=== PATIENT | female | born 1940 | race Caucasian/White ===

== ENCOUNTER → 2017-10-25 | Outpatient (CLI) | payer MEDICARE, OTHER ==
[~2017-10-25] MED LIST: AMLODIPINE BESYL5 MG PO; ASPIR 8181 MG PO; ATELVIA35 MG PO; ATENOLOL50 MG PO; CALTRATE 600 W1 EACH PO; CRANBERRY500 M1 PO; FISH OIL 1,0001 EAC2 PO; GLUCOSAMIN-CHO1 EACH PO; HYDROCHLOROTHIA25 MG PO; MULTI-VITAMIN1 EACH PO; NEXIUM40 MG PO; SIMVASTATIN80 MG PO; XYZAL5 MG PO
--- NOTE | 2017-10-25 09:51 | Diagnostic Imaging Report ---
Exam: Brain MRI without IV contrast History: Vertigo, evaluate for stroke. Comparison studies: None Technique: Sagittal and axial T2 FS, axial coronal T2 FLAIR, axial T1 FLAIR, axial T2*GRE and axial DWI. Intravenous contrast: None Findings: Scalp: No normal in signal. No masses. Bone marrow: Normal in signal intensity. Brain sulci: Appropriate for age. Ventricles: Normal in size. No hydrocephalus. Extra axial spaces: No mass, no fluid collection. Parenchyma: No mass, hemorrhage or acute ischemic insults. A few scattered T2 FLAIR hyperintense foci in the supratentorial white matter are nonspecific but most compatible with chronic small vessel ischemic changes. Suprasellar region: No abnormalities. Craniocervical junction: Patent foramen magnum. No Chiari malformation. Vessels: Normal flow-voids in the arteries and sinuses. Incidental findings: Moderately degenerated C4-C5 disc. Retrolisthesis of C4 on C5 with associated disc osteophyte complex results in moderate to severe canal stenosis. IMPRESSION: 1. No acute abnormalities. Specifically, no acute ischemia. 2. Mild supratentorial chronic microvascular ischemic changes. 3. 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 Signed by: Dr. Usama Dunham M.D. on 10/25/2017 9:48 AM
== END ==
LOC: MRI 07:12
PROVIDERS: ATTEND Internal Medicine Interventional Cardiology
DX: I63.9 Cerebral infarction, unspecified (principal)
CPT/HCPCS: 70551

== ENCOUNTER → 2017-12-06 | Outpatient (CLI) | payer MEDICARE, OTHER ==
--- NOTE | 2017-12-06 12:42 | Diagnostic Imaging Report ---
PROCEDURE:ABDOMINAL ULTRASOUND COMPARISON:None. INDICATIONS:RLQ Pain FINDINGS: Liver: 13.4 cm. Normal hepatic parenchymal echogenicity. No focal mass. Main portal vein: 0.7 cm. Hepatopetal flow. Gallbladder: No stones, sludge, wall thickening, or pericholecystic fluid. Common Bile Duct: 0.4 cm. No echogenic filling defect. Sonographic Jesus's sign: Negative Right kidney: 10.5 cm. No solid or cystic mass, echogenic calculi, or hydronephrosis. Normal parenchymal echogenicity. Left kidney: 10.5 cm. No solid or cystic mass, echogenic calculi, or hydronephrosis. Normal parenchymal echogenicity. Spleen: 8.3 cm. No focal lesions. Pancreas: The visualized portions of the pancreas are normal. Inferior vena cava: Normal. Aorta: Normal. Ascites: None. Additional transverse and longitudinal images through the right lower quadrant in the area of referred pain were performed, and showed no abnormalities. CONCLUSION: 1. Essentially unremarkable abdominal ultrasound. No sonographic abnormalities in the area of referred pain. Recommend contrast-enhanced CT abdomen/pelvis for further evaluation, if continued pain. Chepe Anna M.D. Dictated by: Chepe Anna M.D. on 12/06/2017 at 12:52 Electronically approved by: Chepe Anna M.D. on 12/06/2017 at 12:52
== END ==
LOC: US 08:30
PROVIDERS: ATTEND Family Medicine
DX: R10.31 Right lower quadrant pain (principal)
CPT/HCPCS: 76700

== ENCOUNTER → 2017-12-21 | Day surgery (SDC) | payer MEDICARE, OTHER ==
[2017-12-13 10:45] LABS: BASOPHILS % 0.4 % (0.0-1.0); EOSINOPHILS # (AUTO) 0.1 (0.0-0.4); EOSINOPHILS % 0.9 % (0.0-6.0); HEMATOCRIT 40.3 % (34.2-44.1); HEMOGLOBIN 13.6 g/dL (12.0-16.0); LYMPHOCYTES # (AUTO) 2.6 (1.0-3.2); LYMPHOCYTES % 38.2 % (18.0-39.1); MEAN CORPUSCULAR HEMOGLOBIN 29.7 pg (28-32); MEAN CORPUSCULAR HGB CONC 33.7 g/dL (31-35); MONOCYTES # (AUTO) 0.6 (0.2-0.8); MONOCYTES % 8.7 % (4.4-11.3); NEUTROPHILS # (AUTO) 3.5 (2.1-6.9); NEUTROPHILS % 51.5 % (38.7-80.0); PLATELET COUNT 225 x10e3/uL (140-360); RED BLOOD COUNT 4.58 x10e6/uL (3.6-5.1); RED CELL DISTRIBUTION WIDTH 13.9 % (11.7-14.4)
[~2017-12-21] MED LIST changes: +HYDRALAZINE HCL 20 MG/ML VIAL ONE; +HYOSCYAMINE SULFATE 0.5 MG/ML AMP ONE; +LIDOCAINE HCL 2% LOCAL INJ 5 ML SDV VIAL INJ ONE; +MIDAZOLAM HCL 2 MG/2 ML VIAL ONE; +OMEPRAZOLE40 MG PO; +PROPOFOL IV EMULSION 10 MG/ML 50 ML VIAL ONE
--- OUTSIDE RECORDS SUMMARY | 2017-12-21 07:43 | XMS REPORT ---
Author Author [facility] Address Unknown Phone Unavailable Care Team Providers Care Roll Former Name Role Phone BENITO MERINO Unavailable Unavailable TRACEY HERNÁNDEZ Unavailable Unavailable Problems This patient has no known problems. Allergies, Adverse Reactions, Alerts This patient has no known allergies or adverse reactions. Medications This patient has no known medications. Results Test Description Test Time Test Comments Text Results Atomic Results Result Comments US ABDOMEN COMPLETE [place] [address] Patient Name: MONIKA OSWALD MR #: [id number] : 1940 Age/Sex: 77/F Req #: [id number] [facility] Physician: Ordered by: BENITO MERINO DO Report #: [id number] Location: US Room/Bed: Procedure: [id number] US/US ABDOMEN COMPLETE Exam Date: 12/06/17 Exam Time: 0907 REPORT STATUS: Signed PROCEDURE: ABDOMINAL ULTRASOUND COMPARISON: None. INDICATIONS: RLQ Pain FINDINGS: Liver: 13.4 cm. Normal hepatic parenchymal echogenicity. No focal mass. Main portal vein: 0.7 cm. Hepatopetal flow. Gallbladder: No stones, sludge, wall thickening, or pericholecystic fluid. Common Bile Duct: 0.4 cm. No echogenic filling defect. Sonographic Jesus's sign: Negative Right kidney: 10.5 cm. No solid or cystic mass, echogenic calculi, or hydronephrosis. Normal parenchymal echogenicity. Left kidney: 10.5 cm. No solid or cystic mass, echogenic calculi, or hydronephrosis. Normal parenchymal echogenicity. Spleen: 8.3 cm. No focal lesions. Pancreas: The visualized portions of the pancreas are normal. Inferior vena cava: Normal. Aorta: Normal. Ascites: None. Additional transverse and longitudinal images through the right lower quadrant in the area of referred pain were performed, and showed no abnormalities. CONCLUSION: 1. Essentially unremarkable abdominal ultrasound. No sonographic abnormalities in the area of referred pain. Recommend contrast- enhanced CT abdomen/pelvis for further evaluation, if continued pain. Ran Anna M.D. Dictated by: Ran Anna M.D. on 12/06/2017 at 12:52 Electronically approved by: Ran Anna M.D. on 12/06/2017 at 12:52 Dictated By: RAN ANNA MD 1252 Transcribed By: BALJIT on 12/06/17 1252 COPY TO: BENITO MERINO DO MRI BRAIN WO [place] [address] Patient Name: MONIKA OSWALD MR #: [id number] : 1940 Age/Sex: 77/F Req #: [id number] Adm Physician: Ordered by: TRACEY HERNÁNDEZ MD Report #: [id number] Location: MRI Room/Bed: Procedure: [id number] MRI/MRI BRAIN WO Exam Date: 10/25/17 Exam Time: 0805 REPORT STATUS: Signed Exam: Brain MRI without IV contrast History: Vertigo, evaluate for stroke. Comparison studies: None Technique: Sagittal and axial T2 FS, axial coronal T2 FLAIR, axial T1 FLAIR, axial T2*GRE and axial DWI. Intravenous contrast: None Findings : Scalp: No normal in signal. No masses. Bone marrow: Normal in signal intensity. Brain sulci: Appropriate for age. Ventricles: Normal in size. No hydrocephalus. Extra axial spaces: No mass, no fluid collection. Parenchyma: No mass, hemorrhage or acute ischemic insults. A few scattered T2 FLAIR hyperintense foci in the supratentorial white matter are nonspecific but most compatible with chronic small vessel ischemic changes. Suprasellar region: No abnormalities. Craniocervical junction: Patent foramen magnum. No Chiari malformation. Vessels: Normal flow-voids in the arteries and sinuses. Incidental findings: Moderately degenerated C4-C5 disc. Retrolisthesis of C4 on C5 with associated disc osteophyte complex results in moderate to severe canal stenosis. IMPRESSION: 1. No acute abnormalities. Specifically, no acute ischemia. 2. Mild supratentorial chronic microvascular ischemic changes. 3. 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 Signed by: Dr. Nubia Dunham M.D. on 10/25/2017 9:48 AM Dictated By: NUBIA DUNHAM MD 7 Transcribed By: KHLOE on 10/25 COPY TO: TRACEY HERNÁNDEZ MD
--- OUTSIDE RECORDS SUMMARY | 2017-12-21 07:43 | XMS REPORT | Clinical Summary ---
Author Author [facility] Address Unknown Phone Unavailable Care Team Providers Care [employer] Artist Name Role Phone Asked, Pcp PCP Unavailable Allergies Active Allergy Reactions Severity Noted Date Comments Codeine 09/06/2017 Erythromycin 09/06/2017 Sulfa (Sulfonamide 09/06/2017 Antibiotics) Current Medications Prescription Sig. Disp. Refills Start End Date Status Date amLODIPine (NORVASC) 5 mg TK 1 T PO QD 1 07/10/20 Active tablet 17 atenolol (TENORMIN) 50 MG TK 1 T PO QD 0 08/18/20 Active tablet 17 hydroCHLOROthiazide TK 1 T PO QD 0 06/23/20 Active (HYDRODIURIL) 25 MG 17 tablet simvastatin (ZOCOR) 80 MG 1 09/06/20 Active tablet 17 risedronate 35 mg TK 1 T PO 1 TIME A WEEK 1 08/15/20 Active tablet,delayed release 17 (DR/EC) omega-3 acid ethyl esters TK 2 CS PO BID 1 09/01/20 Active (LOVAZA) 1 gram capsule 17 fluticasone (FLONASE) 50 U 1 SPRAY IEN ONCE A DAY 0 06/03/20 Active mcg/actuation nasal spray 17 FLUZONE HIGH-DOSE ADM 0.5ML IM UTD 0 08/18/20 Active 2017-18, PF, 180 mcg/0.5 17 mL syringe vaccine esomeprazole (NexIUM) 40 Take 40 mg by mouth daily Active MG capsule before breakfast. CALCIUM CARBONATE/VITAMIN Take by mouth. Active D3 (CALTRATE 600 + D ORAL) [id number]-lzyoebelifv-[id number] Take by mouth. Active cb25 116-100 mg capsule aspirin (ECOTRIN) 81 MG Take 81 mg by mouth Active enteric coated tablet daily. CRANBERRY FRUIT EXTRACT Take 3,600 mg by mouth Active (CRANBERRY EXTRACT ORAL) daily. MULTIVIT WITH Take by mouth. Active CALCIUM,IRON,MIN (MULTIPLE VITAMIN, WOMENS ORAL) Active Problems No known active problems Encounters Date Type Specialty Care Team Description 09/06/2017 Office Visit Obstetrics and Gynecology Nicki [facility] Well adult exam (Primary MD Stanley Dx) after 12/20/2016 Family History Medical History Relation Name Comments Diabetes Brother Hypertension Father Colon cancer Mother Diabetes Mother Hypertension Mother Relation Name Status Comments Brother Father Mother Social History Tobacco Use Types Packs/Day Years Used Date Never Smoker Alcohol Use Drinks/Week oz/Week Comments No Sex Assigned at Date Recorded Not on file Last Filed Vital Signs Vital Sign Reading Time Taken Blood Pressure 180/75 09/06/2017 2:36 PM [employer] Pulse 52 09/06/2017 2:36 PM [employer] Temperature 36.5 C (97.7 F) 09/06/2017 2:36 PM [employer] Respiratory Rate - - Oxygen Saturation - - Inhaled Oxygen - - Concentration Weight 67 kg (147 lb 9.6 oz) 09/06/2017 2:36 PM [employer] Height 170.2 cm (5' 7") 09/06/2017 2:36 PM [employer] Body Mass Index 23.12 09/06/2017 2:36 PM [employer] Plan of Treatment Health Maintenance Due Date Last Done Comments ZOSTER VACCINE 1998 PNEUMOCOCCAL 2003 POLYSACCHARIDE VACCINE AGE 65 AND OVER PNEUMOCOCCAL-13 2003 INFLUENZA VACCINE 05/24/2017 Results Not on fileafter 12/20/2016 Insurance Payer Benefit Subscriber ID Type Phone Address Plan / Group MEDICARE MEDICARE xxxxxxxxxx Medicare [place], [place] PART A AND B [employer]
--- NOTE | 2017-12-21 09:40 | Operative Report ---
DATE OF PROCEDURE: December 21, 2017 REFERRING PHYSICIAN: Dr. Hari Merino PROCEDURE PERFORMED: Colonoscopy and polypectomy. INDICATIONS FOR COLONOSCOPY: Colorectal cancer screening, personal history of colon polyps. MEDICATION: Patient was done under MAC. Please see anesthesiologist's note. PROCEDURE: With the patient in the left lateral decubitus position, the flexible fiberoptic Olympus colonoscope was inserted into the rectum with ease and advanced all the way to the cecum. Diverticular disease was noted throughout. The scope was then withdrawn slowly, and an approximately 1 cm sessile lesion was noted in the proximal ascending colon suspicious for lipoma. Biopsies were obtained. The rest of the ascending, transverse and descending other than for diverticular disease grossly appeared to be within normal limits. Two polyps were snared from the sigmoid colon. The rectum appeared to be within normal limits. The scope was then retroflexed into the distal rectum and small internal hemorrhoids were noted, none of which was actively bleeding. Also, there were some hypertrophic anal papillae. The scope was then straightened out. It was subsequently withdrawn. Patient tolerated the procedure well. IMPRESSION 1. Pandiverticulosis. 2. Rule out lipoma, ascending colon. 3. Sigmoid colon polyps, snared times 2. 4. Internal hemorrhoids, none actively bleeding. 5. Hypertrophic anal papillae. PLAN: Follow up histology. Initiate high-fiber and low-fat diet. Initiate high-fiber supplement. Timing of followup colonoscopy pending pathology report. Job#: [id number] RI cc:BENITO MERINO DO
== END | disposition home or self-care (01) ==
LOC: ENDO 07:41
PROVIDERS: ATTEND Internal Medicine Gastroenterology
DX: Z12.11 Encounter for screening for malignant neoplasm of colon (principal); D12.5 Benign neoplasm of sigmoid colon; K63.89 Other specified diseases of intestine; K62.89 Other specified diseases of anus and rectum; K57.30 Diverticulosis of large intestine without perforation or abscess without bleeding; K64.8 Other hemorrhoids; K21.9 Gastro-esophageal reflux disease without esophagitis; I10 Essential (primary) hypertension; M19.90 Unspecified osteoarthritis, unspecified site; Z01.810 Encounter for preprocedural cardiovascular examination; Z01.812 Encounter for preprocedural laboratory examination
CPT/HCPCS: 36415; 45380; 45385; 85025; 88305; 93005; J0360; J1980; J2001; J2250

== ENCOUNTER → 2018-01-05 | Outpatient (CLI) | payer MEDICARE, OTHER ==
[~2018-01-05] MED LIST changes: -HYDRALAZINE HCL 20 MG/ML VIAL ONE; -HYOSCYAMINE SULFATE 0.5 MG/ML AMP ONE; -LIDOCAINE HCL 2% LOCAL INJ 5 ML SDV VIAL INJ ONE; -MIDAZOLAM HCL 2 MG/2 ML VIAL ONE; -PROPOFOL IV EMULSION 10 MG/ML 50 ML VIAL ONE
--- NOTE | 2018-01-05 17:20 | Diagnostic Imaging Report ---
PROCEDURE:TRANSVAGINAL ULTRASOUND COMPARISON:None. INDICATIONS:RLQ PAIN; R/O RT. OVARIAN CYST CYST, MASS TECHNIQUE: Grayscale transverse and sagittal transvaginal images were obtained of the pelvis. FINDINGS: UTERUS: Absent RIGHT OVARY: Nonvisualized LEFT OVARY: Nonvisualized There is no free fluid within the pelvis. No adnexal masses. CONCLUSION: No abnormality identified. Tha Dowd D.O. Dictated by: Tha Dowd D.O. on 01/05/2018 at 17:19 Electronically approved by: Tha Dowd D.O. on 01/05/2018 at 17:19
== END ==
LOC: US 14:27
PROVIDERS: ATTEND Family Medicine
DX: R10.31 Right lower quadrant pain (principal)
CPT/HCPCS: 76830

== ENCOUNTER → 2019-09-26 | Outpatient (CLI) | payer MEDICARE, OTHER ==
--- NOTE | 2019-09-26 11:52 | Diagnostic Imaging Report ---
EXAMINATION: Abdominal ultrasound. CLINICAL INDICATION: Right flank pain COMPARISON: None available DISCUSSION: Transverse and longitudinal images of the upper abdomen were obtained. The liver is normal in size measuring 13 centimeters in length in the right midclavicular line and shows normal echogenicity. No focal masses are seen in the liver. There is no intrahepatic biliary dilatation. The common bile duct is normal in caliber measuring 0.3 cm. the main portal vein is normal in caliber and measures 0.7 cm with normal hepatopetal flow. The gallbladder is normal in appearance without stones, wall thickening or pericholecystic fluid. The sonographic Jesus's sign is negative. The visualized portions of the pancreatic body are unremarkable. The spleen is normal in echogenicity and size measuring 8.4 centimeters in length. The right kidney measures 10.2 centimeters in length and the left kidney measures 9.8 centimeters. There is normal renal cortical echogenicity and no hydronephrosis, solid mass or shadowing calculi. Abdominal aorta is nonaneurysmal. IVC is patent. No free fluid is seen. IMPRESSION: Unremarkable abdominal ultrasound. Specifically, no right renal calculi or hydronephrosis in this patient with reported history of right flank pain. Signed by: Dr. Usama Jimenez M.D. on 09/26/2019 11:49 AM
--- NOTE | 2019-09-26 11:54 | Diagnostic Imaging Report ---
EXAMINATION: Transabdominal pelvic ultrasound. CLINICAL INDICATION: Right flank pain COMPARISON: Abdominal ultrasound same day DISCUSSION: Transverse and sagittal transabdominal images were obtained of the pelvis. The uterus is surgically absent. Neither the left nor the right ovary is identified, possibly age-related or due to overlying bowel gas. No free fluid or adnexal masses are seen. IMPRESSION: Status post hysterectomy. Nonvisualization of the ovaries as above. No adnexal mass. Signed by: Dr. Usama Jimenez M.D. on 09/26/2019 11:51 AM
== END ==
LOC: US 10:32
PROVIDERS: ATTEND Family Medicine
DX: R10.9 Unspecified abdominal pain (principal)
CPT/HCPCS: 76700; 76856

== ENCOUNTER → 2019-10-03 | Outpatient (CLI) | payer MEDICARE, OTHER ==
--- NOTE | 2019-10-03 10:39 | Diagnostic Imaging Report ---
Examination: MRI SPINE LUMBAR WO CONTRAST History: Bilateral hip and leg pain. Comparison studies: None Technique: Sagittal, coronal and axial T2 , sagittal T1 and STIR; axial spin density oblique. Findings: Number of lumbar vertebral bodies: Five. Alignment: Normal lordosis. No scoliosis. Soft tissues: No T2 hyperintense inflammatory changes. Posterior paraspinal soft tissues and muscles: No abnormality. Lower thoracic cord: Normal in signal and morphology. The tip of the conus is at L1. Cauda equina: No masses. No arachnoiditis. Vertebrae: No fractures, infection or neoplasm. Degenerative changes: L1-L2: Moderate bilateral facet arthropathy. Mild diffuse disc bulge. No foraminal or canal stenosis. L2-L3: Mild diffuse disc bulge and moderate bilateral facet arthropathy results in mild right neural foraminal narrowing and mild to moderate canal stenosis. No left foraminal narrowing. L3-L4: Grade 1 anterolisthesis without pars defect. Uncovering of a diffuse disc bulge, ligamentum flavum thickening and moderate bilateral facet arthropathy result in mild bilateral neural foraminal narrowing and severe canal stenosis. L4-L5: Diffuse disc bulge, ligamentum flavum thickening and moderate bilateral facet arthropathy results in mild bilateral neural foraminal narrowing and severe canal stenosis. L5-S1: Diffuse disc bulge and moderate bilateral facet arthropathy. No foraminal or canal stenosis. IMPRESSION: Degenerative changes from L1-L2 through L5-S1 with severe canal stenosis at L3-L4 and L4-L5 and mild to moderate canal stenosis at L2-L3. No significant (not moderate or severe) foraminal stenosis. Signed by: Dr. Anita Bains M.D. on 10/03/2019 10:36 AM
== END ==
LOC: MRI 08:31
PROVIDERS: ATTEND Family Medicine
DX: M54.41 Lumbago with sciatica, right side (principal)
CPT/HCPCS: 72148

== ENCOUNTER → 2021-03-06 | Outpatient (CLI) | payer MEDICARE | LOC: MRI 09:36 | PROVIDERS: ATTEND Family Medicine | DX: M54.5 Low back pain (principal) | CPT/HCPCS: 72148 ==

== ENCOUNTER → 2025-01-09 | Outpatient (REF) | payer MEDICARE ==
[~2025-01-09] MED LIST changes: +IOPAMIDOL 370 MG/ML 100 ML INFUS..BTL INJ ONE
[2025-01-09 14:53] LABS: CREATININE, SERUM 0.85 mg/dL (0.57-1.11)
== END ==
LOC: CT 13:43
PROVIDERS: ATTEND Family Medicine
DX: R10.31 Right lower quadrant pain (principal)
CPT/HCPCS: 36415; 74177; 82565; 84520; Q9967